=== PATIENT | male | born 1955 | race Caucasian/White ===

== ENCOUNTER → 2016-09-17 | Outpatient (CLI) | payer BC ==
[2016-09-17 17:33] LABS: BASO % 0.5 %; BASO ABS # 0.04 K/uL (0-0.2); COMPLETE YES; EOS % 4.7 %; HEMATOCRIT 47.4 % (42-52); IG% 0.3 %; LYMPH % 19.7 %; MEAN CELL VOLUME 87.6 fL (80-100); MEAN CORPUSCULAR HEMOGLOBIN 28.8 pg (25-34); MEAN CORPUSCULAR HGB CONC 32.9 g/dl (32-36); NEUT % 66.8 %; PLATELET COUNT 385 K/uL (130-400); RED BLOOD COUNT 5.41 M/uL (4.7-6.1)
[2016-09-17 17:55] LABS: ALT/SGPT 45 U/L (12-78); BLOOD UREA NITROGEN 20 mg/dl (7-18); BUN/CREATININE RATIO 18.1 (10-20); CALCIUM 9.2 mg/dl (8.5-10.1); CARBON DIOXIDE 25 mmol/L (21-32); CHLORIDE 107 mmol/L (98-107); CHOLESTEROL 206 mg/dl (0-200); GLUCOSE 96 mg/dl (70-99); POTASSIUM 4.3 mmol/L (3.5-5.1); SODIUM 138 mmol/L (136-145)
[2016-09-17 18:05] LABS: ALKALINE PHOSPHATASE 70 U/L (45-117); AST/SGOT 19 U/L (15-37); CHOLESTEROL/HDL RATIO 5.3; HDL CHOLESTEROL 39 mg/dl; LDL CHOLESTEROL CALCULATED 122 mg/dl; TRIGLYCERIDES 225 mg/dl (0-150); VERY LOW DENSITY LIPOPROT CALC 45 mg/dl
[2016-09-18 06:56] LABS: ESTIMATED AVERAGE GLUCOSE 108 mg/dl; HA1C FLAG Normal (Normal)
== END | disposition home or self-care (01) ==
LOC: C.LABPVFM 15:11
PROVIDERS: ATTEND Neuromusculoskeletal Medicine & OMM
DX: Z00.00 Encounter for general adult medical examination without abnormal findings (principal); H53.9 Unspecified visual disturbance

== ENCOUNTER → 2017-07-03 | Day surgery (SDC) | payer BC ==
[2017-06-28 16:12] VITALS: Ht 139.7 cm; Wt 64.5 kg
[~2017-07-03] VITALS: Ht 139.7 cm; Wt 64.5 kg
[~2017-07-03] MED LIST: HYDR25TA4 PO; LIDOCAINE HCL 2% 2 ML VIAL (20MG/ML) ONE; MULT-1027 PO; PROPOFOL IV EMULSION 10 MG/ML 20 ML VIAL ONE; SODIUM CHLORIDE 0.9% 500ML 500 ML IV ONE
--- NOTE | 2017-07-03 10:16 | Endo History and Physical ---
History & Physical Date of Service: July 03, 2017. Chief Complaint: Screening Referring Physician: Gustavo Germain History of Present Illness 61 yo CM who presents for screening colonoscopy. Past Surgical History Hx Cardiac Surgery: Yes (OPEN HEART SURGERY, [facility] 50 YRS AGO) Hx Internal Defibrillator: No Hx Pacemaker: No Hx Abdominal Surgery: No Hx of Implantable Prosthesis: No Hx Cancer Surgery: No Hx Thoracic Surgery: No Hx Orthopedic: No Hx Urinary Tract Surgery: No Family History None Social History Smoking Status: Never Smoker Hx Substance Use: No Hx Alcohol Use: Yes (SOCIAL) Allergies Coded Allergies: Penicillins (Unverified Allergy, Mild, Rash, 07/03/17) Current Medications Reported Home Medications Medications Dose Route/Sig Max Daily Dose Days Date Category Multi Vitamin (Multiple Vitamin) 1 Tab Tab 1 Tab PO DAILY 06/28/17 Reported Hctz (Hydrochlorothiazide) 25 Mg Tab 1 Tab PO DAILY 30 06/28/17 Reported Vital Signs Weight (Kilograms): 64.55 Height (Feet): 4 Height (Inches): 7 Date Time Temp Pulse Resp B/P (MAP) Pulse Ox O2 Delivery O2 Flow Rate FiO2 07/03/17 09:51 36.8 69 18 129/82 (98) 95 Room Air Physical Exam General Appearance: WD/WN, no apparent distress Respiratory/Chest: Auscultation: breath sounds normal Cardiovascular: Heart Auscultation: RRR Abdomen: Bowel Sounds: normal Inspection & Palpation: soft, non-distended, no tenderness, guarding & rebound Assessment and Plan Assessment: 61 yo CM who presents for screening colonoscopy. Plan: Proceed with colonoscopy.
--- NOTE | 2017-07-03 10:45 | GI REPORT ---
Patient Name: Elin Celeste Procedure Date: 07/03/2017 10:07 AM Date of : 1955 Admit Type: Outpatient Age: 61 Gender: Male Attending MD: Rashid Milton DO Procedure: Colonoscopy Providers: Rashid Milton DO Referring MD: Gustavo Germain Indications: Screening for colorectal malignant neoplasm Medicines: Monitored Anesthesia Care Complications: No immediate complications. Estimated Blood Loss: Estimated blood loss: none. Procedure: Pre-Anesthesia Assessment: - Prior to the procedure, a History and Physical was performed, and patient medications and allergies were reviewed. The patient's tolerance of previous anesthesia was also reviewed. The risks and benefits of the procedure and the sedation options and risks were discussed with the patient. All questions were answered, and informed consent was obtained. Prior Anticoagulants: The patient has taken no previous anticoagulant or antiplatelet agents. ASA Grade Assessment: II - A patient with mild systemic disease. After reviewing the risks and benefits, the patient was deemed in satisfactory condition to undergo the procedure. After I obtained informed consent, the scope was passed under direct vision. Throughout the procedure, the patient's blood pressure, pulse, and oxygen saturations were monitored continuously. The On-site loaner was introduced through the anus and advanced to the terminal ileum. The colonoscopy was performed without difficulty. The patient tolerated the procedure well. The quality of the bowel preparation was good. The terminal ileum, ileocecal valve, appendiceal orifice, and rectum were photographed. Findings: The perianal and digital rectal examinations were normal. Two sessile polyps were found in the sigmoid colon. The polyps were 5 to 8 mm in size. These polyps were removed with a hot snare. Resection and retrieval were complete. Multiple small-mouthed diverticula were found in the sigmoid colon. Impression: - Two 5 to 8 mm polyps in the sigmoid colon, removed with a hot snare. Resected and retrieved. - Diverticulosis in the sigmoid colon. Recommendation: - Resume previous diet. - Continue present medications. - Repeat colonoscopy for surveillance based on pathology results. - Return to primary care physician as previously scheduled. Rashid Milton DO 07/03/2017 10:44:53 AM This report has been signed electronically. Note Initiated On: 07/03/2017 10:07 AM Number of Addenda: 0 I attest to the content of the Intraoperative Record and orders documented therein, exceptions below {[id number]}
--- NOTE | 2017-07-03 10:46 | Discharge Instructions ---
Endoscopy Patient Instructions Date / Procedure(s) Performed July 03, 2017. Colonoscopy Allergy Information Coded Allergies: Penicillins (Unverified Allergy, Mild, Rash, 07/03/17) Discharge Date / Findings July 03, 2017. Colon polyps Diverticulosis Medication Instructions OK to resume all medications today as prescribed Reported Home Medications Medications Dose Route/Sig Max Daily Dose Days Date Category Multi Vitamin (Multiple Vitamin) 1 Tab Tab 1 Tab PO DAILY 06/28/17 Reported Hctz (Hydrochlorothiazide) 25 Mg Tab 1 Tab PO DAILY 30 06/28/17 Reported Provider Instructions Activity Restrictions - No exercising or heavy lifting for 24 hours. - Do not drink alcohol the day of the procedure. - Do not drive a car or operate machinery until the day after the procedure. - Do not make any important decisions or sign important papers in 24 hours after the procedure. Following Day: - Return to full activity which may include returning to work/school. Diet Start your diet with liquids and light foods (jello, soup, juice, toast). Then eat your usual diet if not nauseated. Treatment For Common After Affects For mild abdominal pain, bloating, or excessive gas: - Rest - Eat lightly - Lie on right side Follow-Up Information Follow-up with Gustavo Germain as scheduled Anesthesia Information What You Should Know You have had a procedure that required some medicine to reduce anxiety and discomfort. This treatment is called moderate sedation. After receiving the treatment, you may be sleepy, but you will be able to breathe on your own. The effects of the treatment may last for several hours. Follow these instructions along with Activity/Diet recommendations noted above: * Do NOT do anything where dizziness or clumsiness would be dangerous. * Rest quietly at home today, then you can be up and about tomorrow. * Have a responsible person stay with you the rest of today. * You may have had an I.V. today. If so, you may take the dressing off later today. Recommendations Call your doctor if: * Trouble breathing * Continuous vomiting for more than 24 hours * Temperature above 101 degrees * Severe abdominal pain or bloating * Pain not relieved by pain medicine ordered * There is increased drainage or redness from any incision * A large amount of rectal bleeding greater than 2-3 tablespoons. (If you had a polyp/s removed or have hemorrhoids, a small amount of blood - from the rectum is to be expected.) * You have any unanswered questions or concerns. IN THE EVENT OF A SERIOUS EMERGENCY, GO TO THE NEAREST EMERGENCY ROOM Your discharge instructions were prepared by provider Rashid Milton. Patient Instructions Signature Page Elin Celeste Patient (or Guardian) Signature/Date: I have read and understand the instructions given to me by my caregivers. Caregiver/RN/Doctor Signature/Date: The above-named patient and/or guardian has received patient instructions on this date. + Original Patient Signature Page (only) stays with chart. Please make copy for patient.
--- NOTE | 2017-07-03 10:55 | Anesthesiology Progress Note ---
Anesthesia Post Op Note Date & Time July 03, 2017 at 10:55 Vital Signs Vital Signs Past 12 Hours Date Time Temp Pulse Resp B/P (MAP) Pulse Ox O2 Delivery O2 Flow Rate FiO2 07/03/17 10:42 65 18 120/49 (72) 95 Room Air 07/03/17 09:51 36.8 69 18 129/82 (98) 95 Room Air Notes Mental Status: alert / awake / arousable, participated in evaluation Pt Amnestic to Procedure: Yes Nausea / Vomiting: adequately controlled Pain: adequately controlled Airway Patency, RR, SpO2: stable & adequate BP & HR: stable & adequate Hydration State: stable & adequate Anesthetic Complications: no major complications apparent
[2017-07-03 11:13] VITALS: BP 117/85; PULSE 60; O2SAT 95
== END | disposition home or self-care (01) ==
LOC: C.GI 09:28
PROVIDERS: ATTEND Internal Medicine
DX: Z12.11 Encounter for screening for malignant neoplasm of colon (principal); D12.5 Benign neoplasm of sigmoid colon; E34.3 Short stature due to endocrine disorder; Q77.6 Chondroectodermal dysplasia; I10 Essential (primary) hypertension; Z87.74 Personal history of (corrected) congenital malformations of heart and circulatory system; Z92.241 Personal history of systemic steroid therapy; Z88.0 Allergy status to penicillin

== ENCOUNTER → 2017-10-10 | Outpatient (CLI) | payer BC ==
[~2017-10-10] MED LIST changes: -LIDOCAINE HCL 2% 2 ML VIAL (20MG/ML) ONE; -PROPOFOL IV EMULSION 10 MG/ML 20 ML VIAL ONE; -SODIUM CHLORIDE 0.9% 500ML 500 ML IV ONE
[2017-10-10 13:22] LABS: HEMOGLOBIN A1C 5.3 % (4.5-5.6)
[2017-10-10 13:41] LABS: ALBUMIN 4.2 gm/dl (3.4-5.0); ALKALINE PHOSPHATASE 58 U/L (45-117); ALT/SGPT 51 U/L (12-78); AST/SGOT 28 U/L (15-37); BLOOD UREA NITROGEN 30 mg/dl (7-18); CALCIUM 8.9 mg/dl (8.5-10.1); CARBON DIOXIDE 25 mmol/L (21-32); CHOLESTEROL 198 mg/dl (0-200); CREATININE 1.03 mg/dl (0.60-1.40); GLUCOSE 93 mg/dl (70-99); LDL CHOLESTEROL CALCULATED 142 mg/dl; POTASSIUM 3.8 mmol/L (3.5-5.1); SODIUM 137 mmol/L (136-145); TOTAL PROTEIN 7.4 gm/dl (6.4-8.2)
== END | disposition home or self-care (01) ==
LOC: C.LABPVFM 10:27
PROVIDERS: ATTEND Neuromusculoskeletal Medicine & OMM
DX: E78.1 Pure hyperglyceridemia (principal); I10 Essential (primary) hypertension; Z13.1 Encounter for screening for diabetes mellitus

== ENCOUNTER 2020-10-25 12:46 | Inpatient (IN) ==
--- NOTE | 2020-10-25 14:01 | Emergency Department Note ---
History of Present Illness General Chief complaint: Facial Injury/Pain Stated complaint: FACIAL RASH, SWELLING Time Seen by Provider: 10/25/20 13:45 History of Present Illness Maximum Pain Intensity: 4 This is a 65-year-old male that presents to the emergency department via private vehicle with complaints of "facial rash, swelling". The patient notes that about a week ago he began with blistering/wound to the left eyebrow region without any known trauma or injury. This quickly spread to the left forehead and scalp region. He notes that it does not involve the right side of the face. He then notes the left eye began with edema periorbitally this past Saturday. He was evaluated he states by [facility]. He was started on acyclovir, hydrocortisone cream and prednisone. He began these around noontime yesterday. Last dose of acyclovir was at noon time today. He denies any fevers or chills. Current pain 4/10. 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 He is only able to differentiate shades of light. He notes that this has not changed at all during this course. He is at baseline. He wears glasses but no contacts. Home Medications Medication Instructions Recorded Confirmed Type multivitamin 1 tab PO DAILY 08/25/18 10/25/20 History tamsulosin 0.4 mg capsule 0.4 mg PO DAILY 90 Days #90 cap 08/11/19 10/25/20 Rx dutasteride 0.5 mg capsule 0.5 mg PO DAILY #30 cap 10/17/20 10/25/20 Rx (Avodart) acyclovir 800 mg tablet 800 mg PO 5XD 10/25/20 10/25/20 History hydrochlorothiazide 25 mg tablet 25 mg PO HS 10/25/20 10/25/20 History hydrocortisone 2.5 % topical cream 1 applic TOPICAL BID 10/25/20 10/25/20 History prednisone 10 mg tablet 10 mg PO TID 10/25/20 10/25/20 History Allergies Allergy/AdvReac Type Severity Reaction Status Date / Time Penicillins Allergy Mild Rash Unverified 10/25/20 14:43 Past Med/Surg History Medical History CKD (chronic kidney disease) stage 2, GFR 60-89 ml/min Enlarged prostate with urinary retention Hypertension Surgical History History of detached retina repair History of heart surgery Family History Father Myocardial infarction Aunt Breast cancer Sister Breast cancer Denies family history of Ovarian cancer Prostate cancer Colorectal cancer Social History Smoking Status: Former smoker Tobacco Type: Cigars Age Started Using Tobacco: 57; Cigarettes Per Day: occasional; Second Hand Exposure: No; Hx Alcohol Use: Yes Alcohol type: beer, wine and hard liquor Alcohol Intake Frequency: Monthly or Less Alcohol Intake Frequency Comment: drinks socially Hx Substance Use: No Preferred Language: Serbian Communication Ability: Effective Visual Impairment: No Limitations Hearing Ability: Normal Loading Machine Operator Required: No Beliefs That Will Affect Care: None marital status: Single Current Living Situation: Alone current occupational status: employed current occupation: [employer] Feels Safe at Home: Yes Childhood Exposure to Second-Hand Smoke: No Dental Care, Regularly: Yes Physical Activity Frequency: 3-4 Times per Week Seatbelt Use: always Sunscreen Use: Yes Assistive Devices: Denture - Upper, Denture - Lower and Glasses Review of Systems A total of 10 systems reviewed and were otherwise negative Physical Exam Vital Signs Vital Signs - 24 hr 10/25/20 13:30 10/25/20 14:38 10/25/20 15:00 Temperature 36.7 C Temperature Source Oral Pulse Rate 84 Pulse Rate [Bilateral Finger] 75 74 Pulse Rhythm [Bilateral Finger] Regular Pulse Strength [Bilateral Finger] Normal Respiratory Rate 18 16 20 Respiratory Effort / Characteristics Non-Labored Spontaneous Non-Labored Respiratory Depth Normal Normal Respiratory Pattern Regular Regular Blood Pressure 172/108 H Blood Pressure [Right Arm] 180/123 H 189/106 H Blood Pressure Mean 129 Blood Pressure Mean [Right Arm] 142 133 Blood Pressure Position Sitting Blood Pressure Position [Right Arm] Sitting Sitting Pulse Oximetry 94 94 95 Oxygen Delivery Method Room Air Room Air Sepsis Recent Fever Within 48 Hours No Sepsis New/Unexplained Change in Mental Status No Sepsis Action Taken by Nursing No Action Required 10/25/20 15:37 Temperature Temperature Source Pulse Rate Pulse Rate [Bilateral Finger] 73 Pulse Rhythm [Bilateral Finger] Regular Pulse Strength [Bilateral Finger] Respiratory Rate 20 Respiratory Effort / Characteristics Respiratory Depth Respiratory Pattern Blood Pressure Blood Pressure [Right Arm] 183/106 H Blood Pressure Mean Blood Pressure Mean [Right Arm] 131 Blood Pressure Position Blood Pressure Position [Right Arm] Sitting Pulse Oximetry 94 Oxygen Delivery Method Room Air Sepsis Recent Fever Within 48 Hours Sepsis New/Unexplained Change in Mental Status Sepsis Action Taken by Nursing VITAL SIGNS - Vital signs and nursing notes were reviewed. Stable and afebrile. Hypertensive. GENERAL -65-year-old male appearing his stated age who is in no acute distress. Communicates well with provider and answers questions appropriately. SKIN -there is erythema noted to the left side of the patient's face, left periorbital region and left scalp with vesicular-like lesions noted to the scalp. There is some minor drainage from the left eye region that is a slight hint of yellow. No purulence. The left periorbital region is edematous causing the left eye to be closed. HEAD - NC/AT. EYES -Minor bulbar conjunctival injection noted. Palpebral conjunctiva pink and moist with no injection noted. EARS - No deformities of external structures noted on gross examination bilaterally. No pain elicited with palpation of the tragus bilaterally. External auditory canals without discharge or otorrhea. Tympanic membranes pearly mcduffie without retraction or bulging. No fluid or purulent material visualized behind the TM. Handle of malleus, umbo, cone of light, pars tensa/flaccid all easily visualized. NOSE - Midline and without cyanosis. No epistaxis or purulent drainage noted. Septum midline without deviation or septal hematoma noted. MOUTH/OROPHARYNX - Without perioral cyanosis. Buccal mucosa pink and moist and without leukoplakia. Tongue midline with equal elevation of palate bilaterally. No tonsillar hypertrophy, erythema, or exudates noted. Good dentition noted. NECK - Neck with FROM. No nuchal rigidity. LUNGS - Chest wall symmetric without accessory muscle use, intercostals retractions, or central cyanosis. Normal vesicular breath sounds CTA B/L. No wheezes, rales, or rhonchi appreciated. CARDIAC - RRR with S1/S2. No murmur, rubs, or gallops appreciated. EXTREMITIES - +5/5 strength noted in UE/LE bilaterally. NEUROLOGIC - Cranial nerves II through XII grossly intact. PSYCH - A&O, and cooperates fully with examiner. Pt is very pleasant and interacts well with examiner. Slit Lamp Examination was performed of the left eye. Alcaine drops were applied to the affected eye for proper anesthetization. The left eye was stained with Fluorescein stain to precipitate adequate visualization of any conjunctival/scleral excoriations or ulcers or dendrites. The patient's face was comfortably rested on the chin guard of the slit lamp apparatus. The lights were dimmed and the affected eye(s) were thoroughly examined under microscopy using the blue light. No uptake was present left eye. Additionally, the eye(s) were examined under microscopy using the regular light. Close examination revealed no corneal abnormality to inspection. Mild drainage noted. Negative Obi sign. Patient tolerated the procedure well and no complications were met. Course Administered Medications Acetaminophen (Acetaminophen 325 Mg Tab) 650 mg PO Q4H PRN PRN Reason: pain/fever Stop: 11/24/20 18:40 Last Admin: 10/25/20 23:16 Dose: 650 mg Documented by: [id number] Hydrochlorothiazide (Hydrochlorothiazide 25 Mg Tab) 25 mg PO HS CATRACHITA Stop: 11/24/20 20:59 Last Admin: 10/25/20 21:31 Dose: 25 mg Documented by: [id number] Acyclovir Sodium 500 mg/ (Dextrose) 110 mls @ 110 mls/hr IV Q8H CATRACHITA Stop: 11/01/20 18:59 Last Infusion: 10/25/20 21:31 Dose: 0 mls/hr Documented by: [id number] Admin: 10/25/20 19:37 Dose: 110 mls/hr Documented by: [id number] Miscellaneous (Avodart - Order Awaiting Action) 1 ea N/A QS CATRACHITA Stop: 11/25/20 00:00 Last Admin: 10/26/20 00:45 Dose: Not Given Documented by: [id number] Discontinued Medications Metoprolol Tartrate (Metoprolol Tartrate 25 Mg Tab) 25 mg PO NOW STA Stop: 10/26/20 00:48 Last Admin: 10/26/20 01:39 Dose: 25 mg Documented by: [id number] Proparacaine HCl (Proparacaine 0.5% 225 Drops/15 Ml Btl) 2 drops OP NOW STA Stop: 10/25/20 14:26 Last Admin: 10/25/20 14:26 Dose: 2 drops Documented by: [id number] Medical Decision Making Laboratory Data Result diagrams: 10/25/20 14:17 10/25/20 14:17 Lab Results 10/25/20 10/25/20 10/25/20 Range/Units 14:12 14:12 14:17 WBC 10.13 (4.8-10.8) K/uL RBC 5.49 (4.7-6.1) M/uL Hgb 17.0 (14.0-18.0) g/dL Hct 48.9 (42-52) % MCV 89.1 (80-100) fL MCH 31.0 (25-34) pg MCHC 34.8 (32-36) g/dL RDW Std Deviation 45.4 (36.4-46.3) fL RDW Coeff of Asim 14.1 (11.5-14.5) % Plt Count 313 (130-400) K/uL MPV 10.1 (7.4-10.4) fL Immature Gran % (Auto) 0.1 % Neut % (Auto) 84.1 % Lymph % (Auto) 6.4 % [place] % (Auto) 8.9 % Eos % (Auto) 0.3 % Baso % (Auto) 0.2 % Neut # (Auto) 8.52 H (1.4-6.5) K/uL Lymph # (Auto) 0.65 L (1.2-3.4) K/uL [place] # (Auto) 0.90 H (0.11-0.59) K/uL Eos # (Auto) 0.03 (0-0.5) K/uL Baso # (Auto) 0.02 (0-0.2) K/uL Immature Gran # (Auto) 0.01 (0.00-0.02) K/uL ESR (0-20) mm/hr Sodium (136-145) mmol/L Potassium (3.5-5.1) mmol/L Chloride (98-107) mmol/L Carbon Dioxide (21-32) mmol/L Anion Gap (3-11) BUN (7-18) mg/dl Creatinine (0.6-1.4) mg/dl Est Cr Clr Drug Dosing ml/min Est GFR ( Amer) ml/min Est GFR (Non-Af Amer) ml/min BUN/Creatinine Ratio (10-20) Glucose (70-99) mg/dl Calcium (8.5-10.1) mg/dl Total Bilirubin (0.2-1) mg/dl AST (15-37) U/L ALT (12-78) U/L Alkaline Phosphatase (45-117) U/L C-Reactive Protein (0-0.29) mg/dl Total Protein (6.4-8.2) gm/dl Albumin (3.4-5.0) gm/dl Globulin (2.5-4.0) gm/dl Albumin/Globulin Ratio (0.9-2) COVID-19 Eval Order Covid19 at [facility] SARS-CoV-2 (PCR) NEGATIVE (Negative) 10/25/20 10/25/20 Range/Units 14:17 14:17 WBC (4.8-10.8) K/uL RBC (4.7-6.1) M/uL Hgb (14.0-18.0) g/dL Hct (42-52) % MCV (80-100) fL MCH (25-34) pg MCHC (32-36) g/dL RDW Std Deviation (36.4-46.3) fL RDW Coeff of Asim (11.5-14.5) % Plt Count (130-400) K/uL MPV (7.4-10.4) fL Immature Gran % (Auto) % Neut % (Auto) % Lymph % (Auto) % [place] % (Auto) % Eos % (Auto) % Baso % (Auto) % Neut # (Auto) (1.4-6.5) K/uL Lymph # (Auto) (1.2-3.4) K/uL [place] # (Auto) (0.11-0.59) K/uL Eos # (Auto) (0-0.5) K/uL Baso # (Auto) (0-0.2) K/uL Immature Gran # (Auto) (0.00-0.02) K/uL ESR 30 H (0-20) mm/hr Sodium 135 L (136-145) mmol/L Potassium (3.5-5.1) mmol/L Chloride 101 (98-107) mmol/L Carbon Dioxide 28 (21-32) mmol/L Anion Gap 7.0 (3-11) BUN 22 H (7-18) mg/dl Creatinine 1.02 (0.6-1.4) mg/dl Est Cr Clr Drug Dosing 55.4 ml/min Est GFR ( Amer) 90.2 ml/min Est GFR (Non-Af Amer) 77.9 ml/min BUN/Creatinine Ratio 21.3 H (10-20) Glucose 115 H (70-99) mg/dl Calcium 10.2 H (8.5-10.1) mg/dl Total Bilirubin 0.7 (0.2-1) mg/dl AST (15-37) U/L ALT 65 (12-78) U/L Alkaline Phosphatase 73 (45-117) U/L C-Reactive Protein 0.30 H (0-0.29) mg/dl Total Protein 8.3 H (6.4-8.2) gm/dl Albumin 4.1 (3.4-5.0) gm/dl Globulin 4.2 H (2.5-4.0) gm/dl Albumin/Globulin Ratio 1.0 (0.9-2) COVID-19 Eval Order SARS-CoV-2 (PCR) (Negative) MDM Narrative Patient was seen and evaluated as above in room D09. Review was performed of nursing notes and vital signs. I did review pertinent previous visits and patient history. After obtaining a thorough history and physical examination the above work up was performed. Patient presents to us today with left-sided faci al swelling. It is well demarcated and does not cross the midline. This appears to be consistent with that of zoster. No deficits. Patient at baseline does not have any true vision from the left eye and is only able to differentiate shades of light. This has been unchanged since age 23. He notes it has not changed throughout the last week or so during the course of the shingles. Options of care were discussed with the patient. IV access was established. Labs were drawn. No leukocytosis or concerning anemia. ESR mildly elevated at 30. CRP mildly elevated at 0.30. No emergent metabolic disturbance. Covid testing is negative. Slit-lamp exam was performed of the left eye noting the left periorbital edema. No dendrites noted. No corneal abrasions or ulcers. It does appear to the left superior orbital edema is likely reactive. I did discuss the presentation with the on-call silverware etcher, Dr. Hannah. We reviewed the case. At this time noting the absence of dendrites on saliva exam we will refrain from topical antivirals. At the time of our conversation we discussed the importance of clarifying patient's vision at baseline. Methods of doing this would be either to reach out to his current eye doctor if the patient was not able to differentiate/clarify. I did clarify with the patient and he notes that he is able to appreciate different shades of light but that is his baseline since age 23. It has not changed. Patient is certain on this. I do believe that he would benefit from inpatient management noting the involvement in extension of the shingles at this time. It is involving a large portion of his left forehead, and left scalp region. There is a fair amount of left periorbital edema. Case discussed with the hospitalist. Please refer to further documentation regarding his stay. I will note that the patient states he received his last dose of acyclovir p.o. at noon time today. I discussed this with our in-house pharmacist. It is too soon to dose this again right now. Next dose (starting IV dose) will be about an hour from now. I will defer to the hospitalist as he will be admitted at time. I discussed this with the hospitalist. GCS: 15 In the evaluation and treatment of this patient the following differential diagnoses were entertained: Shingles, cellulitis, abscess, periorbital cellulitis, orbital cellulitis, herpes zoster ophthalmicus, among others Impression & Plan Herpes zoster, Periorbital edema of left eye Discharge Plan Visit Data Chief Complaint: Facial Injury/Pain Stated Complaint: FACIAL RASH, SWELLING ED Provider: Sudheer Hernandez ED Midlevel Provider: Brandyn Rich Discharge Problem: Herpes zoster, Periorbital edema of left eye Patient Disposition: Admitted As Inpatient Condition: Good Discharge Instructions Interventions: ED Discharge Assessment Last Done: 10/25/20 22:08
[2020-10-25] MEDS ORDERED: PROPARACAINE 0.5% 225 DROPS/15 ML BTL OP STA (14:25)
[2020-10-25 14:42] LABS: Basophils # (auto) 0.02 K/uL (0-0.2); Basophils % (auto) 0.2 %; Eosinophils # (auto) 0.03 K/uL (0-0.5); Eosinophils % (auto) 0.3 %; Hematocrit (blood only) 48.9 % (42-52); Immature Granulocytes # (auto) 0.01 K/uL (0.00-0.02); Immature Granulocytes % (auto) 0.1 %; Lymphocytes # (auto) 0.65 K/uL (1.2-3.4); Lymphocytes % (auto) 6.4 %; Mean Corpuscular Hgb Conc 34.8 g/dL (32-36); Mean Corpuscular Volume 89.1 fL (80-100); Mean Platelet Volume 10.1 fL (7.4-10.4); Monocytes % (auto) 8.9 %; Neutrophils # (auto) 8.52 K/uL (1.4-6.5); Neutrophils % (auto) 84.1 %; Platelet Count 313 K/uL (130-400); RDW Coefficient of Variation 14.1 % (11.5-14.5); RDW Standard Deviation 45.4 fL (36.4-46.3); Red Blood Count 5.49 M/uL (4.7-6.1); White Blood Count 10.13 K/uL (4.8-10.8)
[2020-10-25 15:07] LABS: Albumin Level 4.1 gm/dl (3.4-5.0); BUN Creatinine Ratio 21.3 (10-20); Bilirubin,Total 0.7 mg/dl (0.2-1); C Reactive Protein 0.3 mg/dl (0-0.29); Calcium 10.2 mg/dl (8.5-10.1); Creatinine Clr Calc Pharmacy 55.4 ml/min; Est GFR (African American) 90.2 ml/min; Est GFR (Non-African American) 77.9 ml/min; Globulin 4.2 gm/dl (2.5-4.0); Total Protein 8.3 gm/dl (6.4-8.2)
--- NOTE | 2020-10-25 16:08 | History & Physical Report ---
Date of Service October 25, 2020 Assessment & Plan (1) Herpes zoster conjunctivitis: Plan: Rash started about 1 week ago, but still has fresh vesicles on my exam today. Started acyclovir on Saturday (yesterday), but still getting worse. - Start acyclovir 750 mg IV Q8h (10 mg/kg with no need for renal dosing at present) - Hold home prednisone (prescribed by urgent care doctor) (per UTD, no indication this improves outcomes and can increase risk of bacterial infection) - Ophthalmology consulted -> ED provider discussed with Dr. Hannah who recommends holding prednisone drops until examined - Minimal pain at present; acetaminophen PRN - Airborne & contact precautions given active herpes infection. No care providers. (2) Essential (primary) hypertension: Plan: BP elevated in the ED to 180/100 in setting of stress, infection, pain. - Continue home meds: HCTZ (3) CKD (chronic kidney disease) stage 2, GFR 60-89 ml/min: Plan: Baseline Cr ~1.0. - Presently at baseline. - Dose meds for CrCl ~55 mL/min. (4) Enlarged prostate with lower urinary tract symptoms (LUTS): Plan: No present LUTS per my interview. - Continue home dutasteride & tamsulosin - Monitor (5) DVT prophylaxis: Plan: SCDs - Low DVT risk per admission calculator History of Present Illness Primary Care Provider: Gustavo Germain, DO 65yo M w/ hx of HTN who presents with herpes zoster infection with concern for ophthalogic involvement. The patient reports the rash began about 1 week prior. On Saturday, he was seen in urgent care, and the physician started him on acyclovir and prednisone; however, due to the pharmacy not being open, he didn't get his first dose until about noon on Saturday. The rash got worse overnight, and he was advised to come to the ER. He reports that the pain is actually relatively mild today, though overnight, he had significant amounts of pain that was improved with icing the area. He had a retinal detachment in his 20s. His vision in his left eye is down to light/dark, and he reports no change that he can tell. He notes that he has some mild pain with EOM in the left eye. Denies systemic fevers/chills/night sweats. Allergies Allergy/AdvReac Type Severity Reaction Status Date / Time Penicillins Allergy Mild Rash Unverified 10/25/20 14:43 Home Medications Medication Instructions Recorded Confirmed Type multivitamin 1 tab PO DAILY 08/25/18 10/25/20 History tamsulosin 0.4 mg capsule 0.4 mg PO DAILY 90 Days #90 cap 08/11/19 10/25/20 Rx dutasteride 0.5 mg capsule 0.5 mg PO DAILY #30 cap 10/17/20 10/25/20 Rx (Avodart) acyclovir 800 mg tablet 800 mg PO 5XD 10/25/20 10/25/20 History hydrochlorothiazide 25 mg tablet 25 mg PO HS 10/25/20 10/25/20 History hydrocortisone 2.5 % topical cream 1 applic TOPICAL BID 10/25/20 10/25/20 History prednisone 10 mg tablet 10 mg PO TID 10/25/20 10/25/20 History Past Med/Surg History Medical History (Updated 10/25/20 @ 16:40 by Jeancarlos Germain MD) CKD (chronic kidney disease) stage 2, GFR 60-89 ml/min Enlarged prostate with urinary retention Hypertension Surgical History History of detached retina repair History of heart surgery Family History Father Myocardial infarction Aunt Breast cancer Sister Breast cancer Denies family history of Ovarian cancer Prostate cancer Colorectal cancer Social History Smoking Status: Former smoker Tobacco Type: Cigars Age Started Using Tobacco: 57; Cigarettes Per Day: MONTHLY MAYBE HAS ONE CIGAR; Second Hand Exposure: No; Hx Alcohol Use: Yes Alcohol type: beer, wine and hard liquor Alcohol Intake Frequency: Monthly or Less Alcohol Intake Frequency Comment: drinks socially Hx Substance Use: No Preferred Language: Lithuanian Communication Ability: Effective Visual Impairment: No Limitations Hearing Ability: Normal marital status: Single Current Living Situation: Alone current occupational status: employed current occupation: [employer] Feels Safe at Home: Yes Childhood Exposure to Second-Hand Smoke: No Dental Care, Regularly: Yes Physical Activity Frequency: 3-4 Times per Week Seatbelt Use: always Sunscreen Use: Yes Review of Systems Review of Systems: All systems reviewed & are unremarkable except as noted in HPI & below Physical Exam Constitutional: WD/WN, vitals as above Eyes: + eyelid abnormality (Large swelling), + conjunctival abnormality (Severe injection) and EOM intact bilaterally ENMT: external ear and nose normal, oropharynx normal Neck: trachea midline, no thyromegaly normal visual inspection Respiratory: normal respiratory effort, lungs clear to auscultation no respiratory distress Cardiovascular: RRR, no murmur, no edema Gastrointestinal (Abdomen): Inspection/Auscultation: abdomen normal to inspection; abdomen not distended Musculoskeletal: no cyanosis or clubbing, extremities motor strength 5/5 Skin: + rash (Vesicles) and + crusts Neurologic: moves all extremities and awake Psychiatric: Orientation: alert, oriented to person and cooperative Results & Data Results & Data ([facility]) Vital Signs (Past 12 Hours) Vital Signs Temp Pulse Pulse Resp BP BP Pulse Ox 10/25/20 15:37 73 20 183/106 H 94 10/25/20 14:38 75 16 180/123 H 94 10/25/20 13:30 36.7 C 84 18 172/108 H 94 Code Status & VTE Plan VTE Prophylaxis Plan VTE Prophylaxis will be ordered: Yes PG Care Time/CCT Total # of Minutes Spent Total Time Spent with Patient: Total time spent is greater than 50% in coordination of care (as documented) at patient's floor/unit and/or counseling patient: Coding Level of Care Code 80956 Initial Inpt Care Lvl 3 Diagnoses Herpes zoster conjunctivitis B02.31 Essential (primary) hypertension I10 Enlarged prostate with lower urinary tract symptoms (LUTS) N40.1 DVT prophylaxis Z29.9 CKD (chronic kidney disease) stage 2, GFR 60-89 ml/min N18.2
[2020-10-25] MEDS ORDERED: ONDANSETRON INJ 2 MG/ML 2 ML VIAL IV PRN (18:41)
[2020-10-25] MEDS: ACYCLOVIR SOD 500 MG in DEXTROSE 5% 100 ML IV SCH (19:37)
[2020-10-25] MEDS: hydroCHLOROthiazide 25 MG TAB PO SCH (21:31)
[2020-10-25] MEDS: ACETAMINOPHEN 325 MG TAB PO PRN (23:16)
[2020-10-26] MEDS: AVODART - ORDER AWAITING ACTION SCH ×3 (00:45→16:12)
[2020-10-26] MEDS ORDERED: METOPROLOL TARTRATE 25 MG TAB PO STA (00:47)
[2020-10-26] MEDS: ACYCLOVIR SOD 500 MG in DEXTROSE 5% 100 ML IV SCH ×3 (03:04→18:39)
[2020-10-26 07:09] LABS: Hematocrit (blood only) 47.2 % (42-52); Hemoglobin 16.5 g/dL (14.0-18.0); Mean Corpuscular Volume 88.6 fL (80-100); Platelet Count 306 K/uL (130-400); RDW Coefficient of Variation 13.9 % (11.5-14.5); RDW Standard Deviation 45.1 fL (36.4-46.3); Red Blood Count 5.33 M/uL (4.7-6.1); White Blood Count 8.61 K/uL (4.8-10.8)
[2020-10-26 07:45] LABS: BUN Creatinine Ratio 28.2 (10-20); Calcium 9.5 mg/dl (8.5-10.1); Creatinine Clr Calc Pharmacy 58.8 ml/min; Est GFR (African American) 97.1 ml/min; Est GFR (Non-African American) 83.8 ml/min; Magnesium 1.9 mg/dl (1.8-2.4); Potassium 3.5 mmol/L (3.5-5.1)
[2020-10-26] MEDS: TAMSULOSIN HCL 0.4 MG CAP PO SCH (09:27)
[2020-10-26] MEDS: ACETAMINOPHEN 325 MG TAB PO PRN (10:40)
[2020-10-26] MEDS ORDERED: lisinopril 5 MG TAB PO ONE (10:45)
[2020-10-26] MEDS: cloNIDine HCL 0.1 MG TAB PO PRN (11:50)
[2020-10-26] MEDS ORDERED: hydrALAZINE HCL 20 MG/ML VIAL IV PRN (13:05)
[2020-10-26] MEDS ORDERED: KETOROLAC TROMETHAMINE 15 MG/ML VIAL IV PRN (17:49)
--- NOTE | 2020-10-26 17:55 | Hospitalist Progress Note ---
Date of Service October 26, 2020 Assessment & Plan (1) Herpes zoster conjunctivitis: Plan: Rash started about 1 week ago, but still has fresh vesicles on my exam today. Started acyclovir on Saturday (yesterday), but still getting worse. - Start acyclovir 750 mg IV Q8h (10 mg/kg with no need for renal dosing at present) - Hold home prednisone (prescribed by urgent care doctor) (per UTD, no indication this improves outcomes and can increase risk of bacterial infection) - Ophthalmology called and discussed with me. Dr. Hannah who recommends holding prednisone drops . treating with acyclovir IV and will follow up shortly after d/c - Minimal pain at present; acetaminophen PRN ibuprofen and toradol - Airborne & contact precautions given active herpes infection. No care providers. (2) Essential (primary) hypertension: Plan: BP elevated in the ED to 180/100 in setting of stress, infection, pain. - added lisinopril with good success keeping hctz (3) CKD (chronic kidney disease) stage 2, GFR 60-89 ml/min: Plan: Baseline Cr ~1.0. - Presently at baseline. - Dose meds for CrCl ~55 mL/min. (4) Enlarged prostate with lower urinary tract symptoms (LUTS): Plan: No present LUTS per my interview. - Continue home dutasteride & tamsulosin - now is peeing easily (5) DVT prophylaxis: Plan: SCDs - Low DVT risk per admission calculator Admission and Anticipated Discharge Date Admission Date: October 25, 2020 Subjective this pt feels surprisingly well despite left facial nerve distribution zoster, only mild headache and requesting ibuprofen Review of Systems Review of Systems: Mild distress and fatigue mild frontal headache, left eye is swollen closed no speech or swallowing issues no chest pain, pressure or palpitations no shortness of breath, cough or wheezes no abdominal pain, nausea or vomiting, diarrhea or constipation no dysuria, hematuria or frequency no focal joint pain or swelling no back pain, CVA tenderness or radicular pain no bruising, bleeding or rashes no focal signs of weakness or numbness or altered sensation no complaints of anxiety or depression.. Physical Exam Physical Exam: The patient appeared well nourished and appears short of stature as having some genetic growth delay Vital signs as documented. Head exam is normocephalic atraumatic left forehead has zoster involving eye, repoetedly no dendrites seen in ER Neck is without JVD, thyromegaly, or carotid bruits. Lungs are clear to auscultation, no focal loss of breath sounds Cardiac exam, Rhythm is regular.. No murmurs, rubs or gallops. Abdominal exam reveals normal bowel sounds, soft non tender, no masses no abdominal bruits Extremities are nonedematous and both pedal pulses are present, he has no fingernails Neurologic exam is alert and oriented, no focal loss of strength or sensation Skin is without bruises or rashes Psychologically is without concerns for anxiety or depression Results & Data Results & [facility] ([facility]) Vital Signs (Past 12 Hours) Vital Signs Temp Pulse Resp BP Pulse Ox 10/26/20 17:31 98.6 F 65 16 142/82 H 95 10/26/20 13:20 126/79 10/26/20 11:49 177/113 H 10/26/20 09:29 98.6 F 61 16 173/125 H 94 PG Care Time/CCT Total # of Minutes Spent Total Time Spent with Patient: Total time spent is greater than 50% in coordination of care (as documented) at patient's floor/unit and/or counseling patient: Coding Level of Care Code 20180 Subseq Hosp Care Lvl 3 Diagnoses Herpes zoster conjunctivitis B02.31 Essential (primary) hypertension I10 CKD (chronic kidney disease) stage 2, GFR 60-89 ml/min N18.2 Enlarged prostate with lower urinary tract symptoms (LUTS) N40.1 DVT prophylaxis Z29.9
[2020-10-26] MEDS: IBUPROFEN 200 MG TAB PO PRN ×2 (18:08→22:21)
[2020-10-26] MEDS: hydroCHLOROthiazide 25 MG TAB PO SCH (22:21)
[2020-10-27] MEDS: AVODART - ORDER AWAITING ACTION SCH ×3 (00:08→15:13)
[2020-10-27] MEDS: ACYCLOVIR SOD 500 MG in DEXTROSE 5% 100 ML IV SCH ×3 (03:03→18:10)
[2020-10-27] MEDS: IBUPROFEN 200 MG TAB PO PRN ×2 (04:19→11:34)
[2020-10-27] MEDS: lisinopril 5 MG TAB PO SCH (09:14)
[2020-10-27] MEDS: TAMSULOSIN HCL 0.4 MG CAP PO SCH (09:14)
--- NOTE | 2020-10-27 09:52 | Hospitalist Progress Note ---
Date of Service October 27, 2020 Assessment & Plan (1) Herpes zoster conjunctivitis: Plan: Rash started about 1 week ago, but still has fresh vesicles on my exam today. Started acyclovir on Saturday (yesterday), but still getting worse. - Start acyclovir 750 mg IV Q8h (10 mg/kg with no need for renal dosing at present) - Hold home prednisone (prescribed by urgent care doctor) (per UTD, no indication this improves outcomes and can increase risk of bacterial infection) - Ophthalmology called and discussed with me. Dr. Hannah who recommends holding prednisone drops . treating with acyclovir IV and will follow up shortly after d/c - Minimal pain at present; acetaminophen PRN ibuprofen and toradol - Airborne & contact precautions given active herpes infection. No care providers. - eye cultures shows Citrobacter, started on cipro eye gtts (2) Essential (primary) hypertension: Plan: BP elevated in the ED to 180/100 in setting of stress, infection, pain. - added lisinopril with good success keeping hctz (3) CKD (chronic kidney disease) stage 2, GFR 60-89 ml/min: Plan: Baseline Cr ~1.0. - Presently at baseline. - Dose meds for CrCl ~55 mL/min. (4) Enlarged prostate with lower urinary tract symptoms (LUTS): Plan: No present LUTS per my interview. - Continue home dutasteride & tamsulosin - now is urinating easily (5) DVT prophylaxis: Plan: SCDs - Low DVT risk per admission calculator (6) Conjunctivitis: Plan: Citrobacter cultured from eye will start cipro eye gtts Admission and Anticipated Discharge Date Admission Date: October 25, 2020 Subjective pt only having minor headache despite left facial nerve distribution zoster, only mild headache and requesting ibuprofen Review of Systems Review of Systems: Mild distress and fatigue mild frontal headache, left eye is swollen closed but less so than before no speech or swallowing issues no chest pain, pressure or palpitations no shortness of breath, cough or wheezes no abdominal pain, nausea or vomiting, diarrhea or constipation no dysuria, hematuria or frequency no focal joint pain or swelling no back pain, CVA tenderness or radicular pain no bruising, bleeding or rashes no focal signs of weakness or numbness or altered sensation no complaints of anxiety or depression.. Physical Exam Physical Exam: The patient appeared well nourished and appears short of stature as having some genetic growth delay Vital signs as documented. Head exam is normocephalic atraumatic left forehead has zoster involving eye, repoetedly no dendrites seen in ER Neck is without JVD, thyromegaly, or carotid bruits. Lungs are clear to auscultation, no focal loss of breath sounds Cardiac exam, Rhythm is regular.. No murmurs, rubs or gallops. Abdominal exam reveals normal bowel sounds, soft non tender, no masses no abdominal bruits Extremities are nonedematous and both pedal pulses are present, he has no fingernails Neurologic exam is alert and oriented, no focal loss of strength or sensation Skin is without bruises or rashes Psychologically is without concerns for anxiety or depression Results & Data Results & Data ([facility]) Vital Signs (Past 12 Hours) Vital Signs Temp Pulse Resp BP Pulse Ox 10/27/20 09:13 98.6 F 69 18 165/104 H 93 10/26/20 23:23 98.8 F 66 16 145/78 H 96 PG Care Time/CCT Total # of Minutes Spent Total Time Spent with Patient: Total time spent is greater than 50% in coordination of care (as documented) at patient's floor/unit and/or counseling patient: Coding Level of Care Code 07636 Subseq Hosp Care Lvl 2 Diagnoses Herpes zoster conjunctivitis B02.31 Essential (primary) hypertension I10 CKD (chronic kidney disease) stage 2, GFR 60-89 ml/min N18.2 Enlarged prostate with lower urinary tract symptoms (LUTS) N40.1 DVT prophylaxis Z29.9 Conjunctivitis H10.9
[2020-10-27 10:45] LABS: BUN Creatinine Ratio 29.6 (10-20); Creatinine Clr Calc Pharmacy 62.1 ml/min; Est GFR (African American) 103.6 ml/min; Est GFR (Non-African American) 89.4 ml/min; Potassium 3.3 mmol/L (3.5-5.1)
[2020-10-27] MEDS: CIPROFLOXACIN HCL 0.3% OP SOLN 2.5 ML BTL OP SCH ×4 (11:23→21:33)
[2020-10-27] MEDS: cloNIDine HCL 0.1 MG TAB PO PRN (11:29)
[2020-10-27] MEDS ORDERED: POTASSIUM CHLORIDE CRTAB 20 MEQ TABCR PO STA (21:48)
[2020-10-27] MEDS: hydroCHLOROthiazide 25 MG TAB PO SCH (21:48)
[2020-10-28] MEDS: AVODART - ORDER AWAITING ACTION SCH ×2 (00:01→07:10)
[2020-10-28] MEDS: ACYCLOVIR SOD 500 MG in DEXTROSE 5% 100 ML IV SCH ×2 (03:15→11:09)
[2020-10-28] MEDS: CIPROFLOXACIN HCL 0.3% OP SOLN 2.5 ML BTL OP SCH (09:05)
[2020-10-28 09:38] LABS: BUN Creatinine Ratio 22.9 (10-20); Calcium 9.3 mg/dl (8.5-10.1); Creatinine Clr Calc Pharmacy 42.5 ml/min; Est GFR (African American) 65.5 ml/min; Est GFR (Non-African American) 56.5 ml/min; Potassium 4.1 mmol/L (3.5-5.1)
[2020-10-28] MEDS: TAMSULOSIN HCL 0.4 MG CAP PO SCH (11:08)
[2020-10-28] MEDS: lisinopril 5 MG TAB PO SCH (11:08)
--- NOTE | 2020-10-28 18:15 | Discharge Summary ---
Date of Service October 28, 2020 Admission HPI Per Admitting Provider 65yo M w/ hx of HTN who presents with herpes zoster infection with concern for ophthalogic involvement. The patient reports the rash began about 1 week prior. On Saturday, he was seen in urgent care, and the physician started him on acyclovir and prednisone; however, due to the pharmacy not being open, he didn't get his first dose until about noon on Saturday. The rash got worse overnight, and he was advised to come to the ER. He reports that the pain is actually relatively mild today, though overnight, he had significant amounts of pain that was improved with icing the area. He had a retinal detachment in his 20s. His vision in his left eye is down to light/dark, and he reports no change that he can tell. He notes that he has some mild pain with EOM in the left eye. Denies systemic fevers/chills/night sweats. Principal Diagnosis herpes zoster facial nerve distribution uncontrolled hypertension conjunctivitis Discharge Exam The patient appeared improved Vital signs as documented. typically is "blind" [facility] Lungs are clear to auscultation and appear unlabored Cardiac exam, Rhythm is regular.. No murmurs, rubs or gallops. Abdominal exam reveals normal bowel sounds, soft non tender, no masses Extremities are nonedematous and both pedal pulses are normal. Neurologic exam is alert and oriented, no focal loss of strength or sensation Skin is with resolving zoster on left face and scalp Psychologically is without concerns for anxiety or depression. Discharge Data Allergies Allergy/AdvReac Type Severity Reaction Status Date / Time Penicillins Allergy Mild Rash Unverified 10/25/20 14:43 Consultations 10/25/20 15:00 ED Decision to Admit Stat Hospital Course (1) Herpes zoster conjunctivitis: Rash started about 1 week ago, but still has fresh vesicles on my exam today.will complete acyclovir at home. -stop home prednisone (prescribed by urgent care doctor) (per UTD, no indication this improves outcomes and can increase risk of bacterial infection) - Ophthalmology called and discussed with me. Dr. Hannah who recommends holding prednisone drops . treating with acyclovir and will follow up shortly after d/c - will follow up with [facility] Dr Jade (sp?) - eye cultures shows Citrobacter, started on cipro eye gtts (2) Essential (primary) hypertension: BP elevated in the ED to 180/100 in setting of stress, infection, pain. - added lisinopril with good success keeping hctz (3) CKD (chronic kidney disease) stage 2, GFR 60-89 ml/min: Baseline Cr ~1.0. - Presently at baseline. - Dose meds for CrCl ~55 mL/min. (4) Enlarged prostate with lower urinary tract symptoms (LUTS): No present LUTS per my interview. - Continue home dutasteride & tamsulosin - now is urinating easily (5) Conjunctivitis: Citrobacter cultured from eye will start cipro eye gtts Total Time Total Time Spent Total Time Spent (In Minutes): It required greater than 30 minutes to prepare this patient for discharge Discharge Plan Discharge Items Patient Disposition: Home - Self-Care Reason For Visit: ACUTE HERPES ZOSTER W/ OPHTHALMICUS CONCERN Discharge Diagnosis: herpes zoster facial distribution conjunctivitis uncontrolled hypertension Condition on Discharge: Good Activity: Per Instructions section Activity Comment: please see eye doctor in follow up Non-emergency contact: Primary Care Provider and [employer] Call non-emergency contact if: you have any medication questions, your symptoms worsen and your pain is not controlled Follow-up/Referrals: Gustavo Germain DO [Primary Care Provider] - 11/08/20 9:15 am Diet: Regular Addtl Attending Provider Instructions: please follow up with Dr Jade eye doctor for follow up, be sure to get in next week follow up with your primary care, to discuss your blood pressure, you were started on a new med but seems to have better control consider getting the shingles vaccines please complete all of your oral shingles medicine Pending Studies at Discharge: No Stand-Alone Forms: My [facility] [employer], Opioid Pain Management, Smoking Cessation Medications and DC Order Prescriptions: New ciprofloxacin HCl 0.3 % Drops 2 drp ophthalmic (eye) QID Qty: 5 RF: 0 lisinopril [Zestril] 5 mg Tablet 5 mg PO QAM Qty: 30 RF: 3 Continued tamsulosin 0.4 mg capsule 0.4 mg PO DAILY 90 Days Qty: 90 RF: 3 multivitamin tablet 1 tab PO DAILY RF: 0 dutasteride [Avodart] 0.5 mg capsule 0.5 mg PO DAILY Qty: 30 RF: 2 hydrochlorothiazide 25 mg tablet 25 mg PO HS RF: 0 acyclovir 800 mg tablet 800 mg PO 5XD Qty: 50 RF: 0 Discontinued prednisone 10 mg Tablet 10 mg PO TID RF: 0 hydrocortisone 2.5 % cream 1 applic TOPICAL BID RF: 0 Discharge Orders: Discharge Order (Routine); Ordered 10/28/20 Ordered By: Sudheer Freed/Other Patient Handouts: Conjunctivitis Caused by Infection, Shingles (Herpes Zoster) Admission Data Admit Date/Time: 10/25/20 15:57 Attending Provider: Sudheer Bocanegra Admit Provider: Jeancarlos Germain Primary Care Provider: Gustavo Germain Other Providers: Jeancarlos Germain Other Interventions: Discharge Summary Assessment (RN) Last Done: 10/28/20 13:01 Coding Level of Care Code D/C DAY MANAGEMENT >30 MINS Diagnoses Herpes zoster conjunctivitis B02.31 Essential (primary) hypertension I10 CKD (chronic kidney disease) stage 2, GFR 60-89 ml/min N18.2 Enlarged prostate with lower urinary tract symptoms (LUTS) N40.1 Conjunctivitis H10.9
== END 2020-10-28 14:08 | disposition home or self-care (01) | DRG 125 ==
LOC: ED 12:46 → SUATTDRO 15:57 → EDINP 15:57 → 3W 22:08